=== PATIENT | female | born 1995 | race African-American/Black ===

== ENCOUNTER 2016-09-12 14:10 | Emergency (ER) | payer OTHER ==
--- NOTE | 2016-09-12 15:34 | EDDOCDS ---
Nurse's Notes [facility] Name: Velma Hernandez Age: 21 yrs Sex: Female : 1995 Arrival Date: 09/12/2016 Time: 14:10 Bed TR7 Private MD: BÁRBARA Lynn Diagnosis: Acute upper respiratory infections of multiple and unspecified sites;Cough Presentation: 09/12 14:15 Presenting complaint: Patient states: Productive cough, nasal congestion, sore throat, dwg symptoms for one week worsening progressively. Adult Sepsis Screening: The patient does not have new or worsening altered mentation. Patient's respiratory rate is less than 22. Systolic blood pressure is greater than 100. Patient has a qSOFA score of 0- Negative Sepsis Screen. Suicide/Homicide risk assessment- the patient denies having any suicidal and/or homicidal ideations and does not present with any other emotional, behavioral or mental health complaints. Status: The patient is a dependent. Transition of care: patient was not received from another setting of care. 14:15 Acuity: ALE Level 5 dwg 14:15 Method Of Arrival: Walkin/Carried/Asstd dwg Triage Assessment: 14:18 General: Appears in no apparent distress. Pain: Pain currently is 7 out of 10 on a pain dwg scale. Pt Declines HIV testing. 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 Robitussin PE 30-100 mg/5 mL Oral syrp 10 mL as needed (Last dose: 09/11/2016 21:00) - PMHx: none; - PSHx: Tonsillectomy; Adenoidectomy; - Social history: Smoking status: Patient states was never smoker of tobacco. No barriers to communication noted, The patient speaks fluent Vietnamese. - Family history: Not pertinent. - : The pt / caregiver states he / she is not on anticoagulants. Home medication list is obtained from the patient. - Exposure Risk Screening:: None identified. Screenin:31 Screening information is obtained from the patient. Fall risk: No risks identified. jmb Assistance ADL's: requires no assistance with activities of daily living. Abuse/DV Screen: The patient / caregiver reports he/she is: not in a situation that causes fear, pain or injury. Nutritional screening: No deficits noted. Advance Directives: Currently, there is no health care proxy. There is no active DNR order. There is no living will. There is no Power of Community Outreach Specialist. home support is adequate. Assessment: 15:31 General: Patient instructed on discharge instructions. Patient asked if there were any jmb questions regarding discharge, patient stated no. Patient signed discharge instructions. Patient discharged in stable condition.. Vital Signs: 14:11 BP 137 / 87; Pulse 103; Resp 18 S; Temp 98.7(O); Pulse Ox 100% on R/A; Weight 68.04 kg dd6 (R); Height 5 ft. 5 in. (165.10 cm) (R); 15:31 BP 130 / 80; Pulse 98; Resp 22; Temp 98.4(O); Pulse Ox 100% on R/A; Pain 0/10; jmb 14:11 Body Mass Index 24.96 (68.04 kg, 165.10 cm) dd6 Vitals: 14:11 Log In Time: September 12, 2016 at 14:09. dd6 ED Course: 14:11 Patient visited by Jose Brooks PCA. dd6 14:[address] [facility] is Private Physician. dd6 14:11 Patient moved to Waiting dd6 14:12 Patient moved to Pre RCE dd6 14:17 Triage Initiated dwg 14:57 Patient moved to Triage 1 ct3 14:58 Doyle Granados [facility]. cc10 14:58 Oriana Barnard MD is Attending Physician. cc10 15:03 Patient visited by Doyle Granados PA-C. cc10 15:03 Patient visited by Doyle Granados PA-C. cc10 15:[address] [facility] is Referral Physician. cc10 15:31 Patient moved to TR7 ct3 15:31 The patient / caregiver is instructed regarding the plan of care and ED course. jmb 15:31 No IV's were initiated during this patient's visit. No procedures done that require jmb assistance. Order Results: There are currently no results for this order. Outcome: 15:21 Discharge ordered by Provider. cc10 15:31 Discharge Assessment: Patient awake, alert and oriented x 3. No cognitive and/or jmb functional deficits noted. Patient verbalized understanding of disposition instructions. Patient awake and alert. obeys commands, Oriented to person, place and time. Patient verbalized understanding of disposition instructions. Patient has no functional deficits. patient administered narcotics - no. The following High Risk Discharge criteria are identified: None. Discharged to home ambulatory. Condition: stable Condition: improved. Discharge instructions given to patient, Instructed on discharge instructions, follow up and referral plans. medication usage, Demonstrated understanding of instructions, medications, Pt was receptive of discharge instructions/ teaching. Prescriptions given X 3. No special radiology studies were completed. Property sent home with patient. 15:33 Patient left the ED. matias Signatures: Romain Ren, RN RN Jose Painting, [employer]ACE [employer] MISSILE OPERATIONS SPACELIFT SPACE [employer] MISSILE OPERATIONS SPACELIFT dd6 Susan Muñoz, [employer]PER[employer] SPACELIFT SPACE [employer]ISSI[employer]PERATIONS SPACELIFT ct3 Timothy Hernandez RN RN jmb Coniski, Colin, PA-C PA-C cc10 NICOL
--- NOTE | 2016-09-12 15:34 | EDDOCDS ---
Physician Documentation [facility] Name: Velma Hernandez Age: 21 yrs Sex: Female : 1995 Arrival Date: 09/12/2016 Time: 14:10 Bed TR7 Private MD: BÁRBARA Lynn Disposition: 09/12/16 15:21 Discharged to Home/Self Care. Impression: Acute upper respiratory infections of multiple and unspecified sites, Cough. - Condition is Stable. - Discharge Instructions: Upper Respiratory Infection, Adult, Cough, Adult. - Prescriptions for Augmentin 875- 125 mg Oral Tablet - take 1 tablet by ORAL route every 12 hours for 10 days; 20 tablet. Prednisone 20 mg Oral Tablet - take 1 tablet by ORAL route once daily for 5 days; 5 tablet. benzonatate 200 mg Oral Capsule - take 1 capsule by ORAL route 3 times per day As needed; 30 capsule. - Medication Reconciliation, Work Release Form - 3 day form. - Follow up: BÁRBARA Lynn; When: Call to arrange an appointment; Reason: Wound/Symptom Recheck, Recheck today's complaints, Worsening of conditions, Continuance of care. - Problem is an ongoing problem. - Symptoms are unchanged. Historical: - Allergies: no known allergies; - Home Meds: 1. Robitussin PE 30-100 mg/5 mL Oral syrp 10 mL as needed (Last dose: 09/11/2016 21:00) - PMHx: none; - PSHx: Tonsillectomy; Adenoidectomy; - Social history: Smoking status: Patient states was never smoker of tobacco. No barriers to communication noted, The patient speaks fluent Kosovan. - Family history: Not pertinent. - : The pt / caregiver states he / she is not on anticoagulants. Home medication list is obtained from the patient. - Exposure Risk Screening:: None identified. 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 5 in. (165.10 cm) (R); 15:31 BP 130 / 80; Pulse 98; Resp 22; Temp 98.4(O); Pulse Ox 100% on R/A; Pain 0/10; jmb 14:11 Body Mass Index 24.96 (68.04 kg, 165.10 cm) dd6 MDM: 15:27 Financial registration complete. lg Signatures: Romain Ren, RN RN Anisa Coppola, Reg Reg lg Timothy Hernandez,Doyle Fuller RN, PACarolC PACarolC cc10 MTDD
--- NOTE | 2016-09-14 16:34 | EDDOCDS ---
Physician Documentation [facility] Name: Velma Orr Age: 21 yrs Sex: Female : 1995 Arrival Date: 09/12/2016 Time: 14:10 Bed TR7 Private MD: BÁRBARA Lynn Disposition: 09/12/16 15:21 Discharged to Home/Self Care. Impression: Acute upper respiratory infections of multiple and unspecified sites, Cough. - Condition is Stable. - Discharge Instructions: Upper Respiratory Infection, Adult, Cough, Adult. - Prescriptions for Augmentin 875- 125 mg Oral Tablet - take 1 tablet by ORAL route every 12 hours for 10 days; 20 tablet. Prednisone 20 mg Oral Tablet - take 1 tablet by ORAL route once daily for 5 days; 5 tablet. benzonatate 200 mg Oral Capsule - take 1 capsule by ORAL route 3 times per day As needed; 30 capsule. - Medication Reconciliation, Work Release Form - 3 day form. - Follow up: BÁRBARA Lynn; When: Call to arrange an appointment; Reason: Wound/Symptom Recheck, Recheck today's complaints, Worsening of conditions, Continuance of care. - Problem is an ongoing problem. - Symptoms are unchanged. Historical: - Allergies: no known allergies; - Home Meds: 1. Robitussin PE 30-100 mg/5 mL Oral syrp 10 mL as needed (Last dose: 09/11/2016 21:00) - PMHx: none; - PSHx: Tonsillectomy; Adenoidectomy; - Social history: Smoking status: Patient states was never smoker of tobacco. No barriers to communication noted, The patient speaks fluent Greenlandic. - Family history: Not pertinent. - : The pt / caregiver states he / she is not on anticoagulants. Home medication list is obtained from the patient. - Exposure Risk Screening:: None identified. 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 5 in. (165.10 cm) (R); 15:31 BP 130 / 80; Pulse 98; Resp 22; Temp 98.4(O); Pulse Ox 100% on R/A; Pain 0/10; jmb 14:11 Body Mass Index 24.96 (68.04 kg, 165.10 cm) dd6 MDM: 15:27 Financial registration complete. lg 15:45 [facility] Payment Agreement was scanned into [employer] and attached to record. lg 17:26 T-Sheet-- Draft Copy was scanned into [employer] and attached to record. klr Signatures: Romain Ren, RN RN Anisa Coppola, Reg Reg lg Timothy Hernandez,RN RN Doyle Dorsey, PA-C PA-C cc10 Janet Beebe klr The chart was reviewed and I authenticate all verbal orders and agree with the evaluation and treatment provided.Attachments: 15:45 [facility] Payment Agreement lg 17:26 T-Sheet-- Draft Copy klr Chart Complete MTDD
--- NOTE | 2016-09-14 16:34 | EDDOCDS ---
Nurse's Notes [facility] Name: Velma Orr Age: 21 yrs Sex: Female : 1995 Arrival Date: 09/12/2016 Time: 14:10 Bed TR7 Private MD: BÁRBARA Lynn Diagnosis: Acute upper respiratory infections of multiple and unspecified sites;Cough Presentation: 09/12 14:15 Presenting complaint: Patient states: Productive cough, nasal congestion, sore throat, dwg symptoms for one week worsening progressively. Adult Sepsis Screening: The patient does not have new or worsening altered mentation. Patient's respiratory rate is less than 22. Systolic blood pressure is greater than 100. Patient has a qSOFA score of 0- Negative Sepsis Screen. Suicide/Homicide risk assessment- the patient denies having any suicidal and/or homicidal ideations and does not present with any other emotional, behavioral or mental health complaints. Status: The patient is a dependent. Transition of care: patient was not received from another setting of care. 14:15 Acuity: LAE Level 5 dwg 14:15 Method Of Arrival: Walkin/Carried/Asstd dwg Triage Assessment: 14:18 General: Appears in no apparent distress. Pain: Pain currently is 7 out of 10 on a pain dwg scale. Pt Declines HIV testing. 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 Robitussin PE 30-100 mg/5 mL Oral syrp 10 mL as needed (Last dose: 09/11/2016 21:00) - PMHx: none; - PSHx: Tonsillectomy; Adenoidectomy; - Social history: Smoking status: Patient states was never smoker of tobacco. No barriers to communication noted, The patient speaks fluent Yi. - Family history: Not pertinent. - : The pt / caregiver states he / she is not on anticoagulants. Home medication list is obtained from the patient. - Exposure Risk Screening:: None identified. Screenin:31 Screening information is obtained from the patient. Fall risk: No risks identified. jmb Assistance ADL's: requires no assistance with activities of daily living. Abuse/DV Screen: The patient / caregiver reports he/she is: not in a situation that causes fear, pain or injury. Nutritional screening: No deficits noted. Advance Directives: Currently, there is no health care proxy. There is no active DNR order. There is no living will. There is no Power of Psychologist Social. home support is adequate. Assessment: 15:31 General: Patient instructed on discharge instructions. Patient asked if there were any jmb questions regarding discharge, patient stated no. Patient signed discharge instructions. Patient discharged in stable condition.. Vital Signs: 14:11 BP 137 / 87; Pulse 103; Resp 18 S; Temp 98.7(O); Pulse Ox 100% on R/A; Weight 68.04 kg dd6 (R); Height 5 ft. 5 in. (165.10 cm) (R); 15:31 BP 130 / 80; Pulse 98; Resp 22; Temp 98.4(O); Pulse Ox 100% on R/A; Pain 0/10; jmb 14:11 Body Mass Index 24.96 (68.04 kg, 165.10 cm) dd6 Vitals: 14:11 Log In Time: September 12, 2016 at 14:09. dd6 ED Course: 14:11 Patient visited by Jose Brooks PCA. dd6 14:11 Shane [facility] is Private Physician. dd6 14:11 Patient moved to Waiting dd6 14:12 Patient moved to Pre RCE dd6 14:17 Triage Initiated dwg 14:57 Patient moved to Triage 1 ct3 14:58 [facility] cc[facility] 14:58 Oriana Barnard MD is Attending Physician. cc10 15:03 Patient visited by Doyle Granados PA-C. cc10 15:03 Patient visited by Doyle Granados PA-C. cc10 15:21 Shane [facility] is Referral Physician. cc10 15:31 Patient moved to TR7 ct3 15:31 The patient / caregiver is instructed regarding the plan of care and ED course. jmb 15:31 No IV's were initiated during this patient's visit. No procedures done that require jmb assistance. 15:44 Patient name changed from Velma\S\\S\Chan-Adela\S\ to Velma\S\Cathy\S\Ruizmonsanto. EDMS 15:45 [facility] Payment Agreement was scanned into [employer] and attached to record. lg 17:26 T-Sheet-- Draft Copy was scanned into [employer] and attached to record. klr Order Results: There are currently no results for this order. Outcome: 15:21 Discharge ordered by Provider. cc10 15:31 Discharge Assessment: Patient awake, alert and oriented x 3. No cognitive and/or jmb functional deficits noted. Patient verbalized understanding of disposition instructions. Patient awake and alert. obeys commands, Oriented to person, place and time. Patient verbalized understanding of disposition instructions. Patient has no functional deficits. patient administered narcotics - no. The following High Risk Discharge criteria are identified: None. Discharged to home ambulatory. Condition: stable Condition: improved. Discharge instructions given to patient, Instructed on discharge instructions, follow up and referral plans. medication usage, Demonstrated understanding of instructions, medications, Pt was receptive of discharge instructions/ teaching. Prescriptions given X 3. No special radiology studies were completed. Property sent home with patient. 15:33 Patient left the ED. matias Signatures: Dispatcher MedGILUPI EDMS Romain Ren, RN Anisa Warren, Reg Reg lg Cecilia Jose, SIEBEL CONSULTANT SIEBEL CONSULTANT dd6 MuñozSusan, SIEBEL CONSULTANT SIEBEL CONSULTANT ct3 Timothy HernandezRN RN Doyle Dorsey, APARNA PAJerson cc10 Janet Beebe Chart Complete MTDYolis
--- NOTE | 2016-09-14 16:34 | EDDOCDS ---
Physician Documentation [facility] Name: Velma Orr Age: 21 yrs Sex: Female : 1995 Arrival Date: 09/12/2016 Time: 14:10 Bed TR7 Private MD: BÁRBARA Lynn Disposition: 09/12/16 15:21 Discharged to Home/Self Care. Impression: Acute upper respiratory infections of multiple and unspecified sites, Cough. - Condition is Stable. - Discharge Instructions: Upper Respiratory Infection, Adult, Cough, Adult. - Prescriptions for Augmentin 875- 125 mg Oral Tablet - take 1 tablet by ORAL route every 12 hours for 10 days; 20 tablet. Prednisone 20 mg Oral Tablet - take 1 tablet by ORAL route once daily for 5 days; 5 tablet. benzonatate 200 mg Oral Capsule - take 1 capsule by ORAL route 3 times per day As needed; 30 capsule. - Medication Reconciliation, Work Release Form - 3 day form. - Follow up: BÁRBARA Lynn; When: Call to arrange an appointment; Reason: Wound/Symptom Recheck, Recheck today's complaints, Worsening of conditions, Continuance of care. - Problem is an ongoing problem. - Symptoms are unchanged. Historical: - Allergies: no known allergies; - Home Meds: 1. Robitussin PE 30-100 mg/5 mL Oral syrp 10 mL as needed (Last dose: 09/11/2016 21:00) - PMHx: none; - PSHx: Tonsillectomy; Adenoidectomy; - Social history: Smoking status: Patient states was never smoker of tobacco. No barriers to communication noted, The patient speaks fluent Serbian. - Family history: Not pertinent. - : The pt / caregiver states he / she is not on anticoagulants. Home medication list is obtained from the patient. - Exposure Risk Screening:: None identified. 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 5 in. (165.10 cm) (R); 15:31 BP 130 / 80; Pulse 98; Resp 22; Temp 98.4(O); Pulse Ox 100% on R/A; Pain 0/10; jmb 14:11 Body Mass Index 24.96 (68.04 kg, 165.10 cm) dd6 MDM: 15:27 Financial registration complete. lg 15:45 [facility] Payment Agreement was scanned into [employer] and attached to record. lg 17:26 T-Sheet-- Draft Copy was scanned into [employer] and attached to record. klr Signatures: Romain Ren, RN RN Anisa Coppola, Reg Reg lg Timothy Hernandez,RN RN Doyle Dorsey, PA-C PA-C cc10 Janet Beebe klr The chart was reviewed and I authenticate all verbal orders and agree with the evaluation and treatment provided.Attachments: 15:45 [facility] Payment Agreement lg 17:26 T-Sheet-- Draft Copy klr Chart Complete MTDD
== END 2016-09-12 15:33 | disposition home or self-care (01) ==
LOC: M ED 14:10
DX: J06.9 Acute upper respiratory infection, unspecified (principal); R05 Cough; Z90.89 Acquired absence of other organs

== ENCOUNTER 2018-09-03 01:17 | Emergency (ER) | payer OTHER ==
[~2018-09-03] VITALS: Ht 165.1 cm; Wt 72.7 kg
[2018-09-03 01:17] VITALS: BP 124/72
[2018-09-03 02:06] LABS: HEMATOCRIT 36.6 % (36.0-47.0); HEMOGLOBIN 12.6 g/dl (12.0-15.5); MEAN CORPUSCULAR HGB CONC 34.4 g/dl (32.0-36.5); MEAN CORPUSCULAR VOLUME 84.1 fl (80.0-96.0); PLATELET COUNT, AUTOMATED 323 10^3/uL (150-450); RED BLOOD COUNT 4.35 10^6/uL (4.00-5.40); WHITE BLOOD COUNT 11.3 10^3/uL (4.0-10.0)
[2018-09-03 02:22] LABS: ALBUMIN 3.5 GM/DL (3.2-5.2); ALT/SGPT 17 U/L (12-78); BILIRUBIN,DIRECT < 0.1 MG/DL (0.0-0.2); BILIRUBIN,TOTAL 0.3 MG/DL (0.2-1.0); BLOOD UREA NITROGEN 8 MG/DL (7-18); CALCIUM LEVEL 8.8 MG/DL (8.5-10.1); CARBON DIOXIDE LEVEL 24 MEQ/L (21-32); CHLORIDE LEVEL 104 MEQ/L (98-107); CREATININE FOR GFR 0.82 MG/DL (0.55-1.30); GLOMERULAR FILTRATION RATE > 60.0 (>60); GLUCOSE, FASTING 94 MG/DL (70-100); LIPASE 106 U/L (73-393); POTASSIUM SERUM 4.1 MEQ/L (3.5-5.1); SODIUM LEVEL 138 MEQ/L (136-145); TOTAL PROTEIN 7.1 GM/DL (6.4-8.2)
[2018-09-03 02:29] LABS: ATYPICAL LYMPH 4 % (0-5); EOSINOPHILS 2 % (0-5); LYMPHOCYTES 44 % (16-52); MONOCYTES 8 % (0-8); NEUTROPHILS 42 % (35-75); PLATELET ESTIMATE NORMAL (NORMAL)
[2018-09-03 02:34] LABS: HCG, SERUM QUALITATIVE POSITIVE (NEGATIVE)
[2018-09-03] MEDS ORDERED: NS 1,000 ML IV ONE (02:45)
[2018-09-03] MEDS ORDERED: KETOROLAC 30 MG/ML VIAL (J1885) IV ONE (02:45)
[2018-09-03] MEDS ORDERED: ACETAMINOPHEN 325 MG TAB PO ONE (03:15)
[2018-09-03 03:58] LABS: HCG, SERUM QUANTITATIVE 1183 MIU/ML
--- NOTE | 2018-09-03 04:19 | REPVR ---
EXAM: US Duplex Artery or Vein of the Abdominal and/or Reproductive Organs, Limited Ovaries EXAM DATE/TIME: 09/03/2018 2:48 AM CLINICAL HISTORY: 23 years old, female; Pain; Pelvic pain; Additional info: Rlq pain, sudden onset TECHNIQUE: Real-time duplex ultrasound scan of the arterial or venous flow with sidhu scale, color Doppler flow and spectral waveform analysis. Limited duplex exam focused on the ovaries. Duplex exam was performed to evaluate for ovarian torsion or mass. COMPARISON: No relevant prior studies available. FINDINGS: Right adnexa: Normal blood flow seen within the right ovary on color Doppler imaging. Normal arterial blood flow with static images on pulsed Doppler, with a peak systolic velocity of 7 cm/s. Left adnexa: Normal arterial and venous blood flow are seen in the left ovary on color and pulsed Doppler. The peak systolic velocity is 5 cm/s. IMPRESSION: Blood flow detected within both ovaries. No evidence of ovarian torsion. EXAM: US Pelvis, Transvaginal EXAM DATE/TIME: 09/03/2018 2:48 AM CLINICAL HISTORY: 23 years old, female; Pain; Pelvic pain; Additional info: Rlq pain, sudden onset TECHNIQUE: Real-time transvaginal pelvic ultrasound with image documentation. Transvaginal imaging was used for better evaluation of the endometrium and adnexa. COMPARISON: No relevant prior studies available. FINDINGS: Uterus/cervix: The uterus is retroverted and measures 3.8 7.2 x 4.6 cm. No masses are seen in the uterus. The endometrial stripe measures 1.4 cm. Right adnexa: The right ovary appears normal and measures 4.9 x 2.3 x 1.7 cm. A complex cyst is seen within the right ovary measuring 2.0 x 1.7 x 2.3 cm. Left adnexa: The left ovary measures 4.0 x 1.9 x 3.5 cm. There is a hypoechoic area with an irregular, thick wall within the left ovary which is probably a partially collapsed corpus luteum, measuring 1.4 x 1.5 x 1.2 cm. Free fluid: No significant fluid is seen in the cul-de-sac. Bladder: Empty bladder. Bladder cannot be evaluated with this probe. IMPRESSION: 1. Unremarkable appearance of uterus. 2. Small complex cyst within the right ovary measuring up to 2 cm. Probable corpus luteum in the left ovary. No evidence of ovarian torsion. Electronically signed by: Esther Bales On 09/03/2018 04:19:05 AM
== END 2018-09-03 04:21 | disposition home or self-care (01) ==
LOC: M ED 01:17
DX: N83.201 Unspecified ovarian cyst, right side (principal); Z33.1 Pregnant state, incidental

== ENCOUNTER 2018-09-10 06:17 | Observation (INO) | payer OTHER ==
[~2018-09-10] VITALS: Ht 165.1 cm; Wt 76.5 kg
[2018-09-10 07:12] LABS: BASO # 0.1 10^3/uL (0.0-0.2); BASO % 0.5 % (0.0-1.0); EOS # 0.4 10^3/uL (0.0-0.50); EOS % 3.7 % (0.0-3.0); HEMATOCRIT 38.7 % (36.0-47.0); HEMOGLOBIN 13.3 g/dl (12.0-15.5); LYMPH # 3.5 10^3/uL (1.5-6.5); LYMPH % 34.5 % (24.0-44.0); MEAN CORPUSCULAR HEMOGLOBIN 29.6 pg (27.0-33.0); MEAN CORPUSCULAR HGB CONC 34.4 g/dl (32.0-36.5); MONO % 10.1 % (0.0-5.0); NEUTROPHILS # 5.1 10^3/uL (1.8-7.7); NEUTROPHILS % 50.9 % (36.0-66.0); PLATELET COUNT, AUTOMATED 319 10^3/uL (150-450)
--- NOTE | 2018-09-10 08:47 | REPVR ---
EXAM: US Duplex Artery or Vein of the Abdominal and/or Reproductive Organs, Limited EXAM DATE/TIME: 09/10/2018 7:47 AM CLINICAL HISTORY: 23 years old, female; Signs and symptoms; Lmp or gestational age (in weeks): Unknown; Other: Vaginal bleeding; TECHNIQUE: Real-time duplex ultrasound scan of the arterial or venous flow of the abdomen and/or reproductive organs, with color Doppler flow and spectral waveform analysis. COMPARISON: US PELVIC NON-OB COMPLETE 09/03/2018 2:43 AM FINDINGS: Right ovary: Normal waveform. Left ovary: Normal waveform. IMPRESSION: No evidence of ovarian torsion bilaterally. EXAM: US First Trimester, Transabdominal and US , Transvaginal EXAM DATE/TIME: 09/10/2018 7:47 AM CLINICAL HISTORY: 23 years old, female; Signs and symptoms; Lmp or gestational age (in weeks): Unknown; Other: Vaginal bleeding; TECHNIQUE: Real-time transabdominal obstetrical ultrasound of the maternal pelvis and a first trimester , less than 14 weeks 0 days, with image documentation. Transvaginal imaging was used for better evaluation of the fetus and adnexa. COMPARISON: US PELVIC NON-OB COMPLETE 09/03/2018 2:43 AM FINDINGS: GESTATION: Gestation: No intra-or extrauterine gestation. MATERNAL: Uterus: Uterus measures 7.4 x 3.6 x 5 cm. Endometrial stripe is 7 mm. Cervix: Unremarkable. Right adnexa: Right ovary measures 2.6 x 3 x 2 cm. Prominent vascular heterogeneous soft tissue in the right adnexa separate from right ovary measures approximately 5.5 x 2.4 x 3 cm. Moderate amount of adjacent complex free fluid. Left adnexa: Left ovary measures 3.2 x 2.2 x 1.8 cm. IMPRESSION: No intra-or extrauterine gestation. Prominent vascular heterogeneous soft tissue in the right adnexa separate from right ovary measures approximately 5.5 x 2.4 x 3 cm. Moderate amount of adjacent complex free fluid. Ruptured right adnexal ectopic is a consideration. Electronically signed by: Jamarcus Ball On 09/10/2018 08:46:57 AM
[2018-09-10] MEDS ORDERED: ACETAMINOPHEN TAB 650MG DOSE (2X325MG) PO PRN (10:30)
--- NOTE | 2018-09-10 10:44 | IPNPDOC ---
Text Note Date of Service The patient was seen on 09/10/18. NOTE ER Consult, observation Subjective: Velma is a 23yo at 8w0d by lmp of Jul 16 who presents to the ER today for vaginal bleeding. She was seen previously in the ER on Aug for abdominal pain/cramping, at which time she was diagnosed with with hcg value at that time of 1,183. TVUS showed nothing in the uterus yet and small 2cm right ovarian complex cyst. She was discharged home and re-presents today with vaginal bleeding like a period. She notes she has had spotting for a few days, but is now bleeding like a typical period. She has absolutely no abdominal pain. hcg today is 271 which is most consistent, especially with her bleeding, with SAB. However, repeat TVUS today was performed which shows concern for a mass that is separate from the right ovary measuring 5.5x2.4x3cm with associated vascularity and adjacent complex free fluid, which are findings concerning for ectopic . Given normal vitals, benign abdomen, no change in H/H and preci pitously falling hcg in the setting of vaginal bleeding, ectopic does not seem likely. This is a conundrum. Patient denies n/v/f/c/CP/SOB. 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 Patient's is [employer] Family: MGM and 2 maternal aunts had breast cancer in their 50's, no ovarian/ uterine/colon cancers Vitals wnl, afebrile General: WDWN, NAD, resting comfortably in bed Abdomen: soft, NTTP in all quadrants, no rebound/guarding Extremities: no pain with palpation of calves Labs: 09/10 hcg 271 H/H 13.3/38.7 Rh positive 09/03 hcg 1,183 H/H 12.6/36.6 Radiology: TVUS Sep 10, 2018 FINDINGS: GESTATION: Gestation: No intra-or extrauterine gestation. MATERNAL: Uterus: Uterus measures 7.4 x 3.6 x 5 cm. Endometrial stripe is 7 mm. Cervix: Unremarkable. Right adnexa: Right ovary measures 2.6 x 3 x 2 cm. Prominent vascular heterogeneous soft tissue in the right adnexa separate from right ovary measures approximately 5.5 x 2.4 x 3 cm. Moderate amount of adjacent complex free fluid. Left adnexa: Left ovary measures 3.2 x 2.2 x 1.8 cm. IMPRESSION: No intra-or extrauterine gestation. Prominent vascular heterogeneous soft tissue in the right adnexa separate from right ovary measures approximately 5.5 x 2.4 x 3 cm. Moderate amount of adjacent complex free fluid. Ruptured right adnexal ectopic is a consideration. TVUS Sep 03, 2018 FINDINGS: Uterus/cervix: The uterus is retroverted and measures 3.8 7.2 x 4.6 cm. No masses are seen in the uterus. The endometrial stripe measures 1.4 cm. Right adnexa: The right ovary appears normal and measures 4.9 x 2.3 x 1.7 cm. A complex cyst is seen within the right ovary measuring 2.0 x 1.7 x 2.3 cm. Left adnexa: The left ovary measures 4.0 x 1.9 x 3.5 cm. There is a hypoechoic area with an irregular, thick wall within the left ovary which is probably a partially collapsed corpus luteum, measuring 1.4 x 1.5 x 1.2 cm. Free fluid: No significant fluid is seen in the cul-de-sac. Bladder: Empty bladder. Bladder cannot be evaluated with this probe. IMPRESSION: 1. Unremarkable appearance of uterus. 2. Small complex cyst within the right ovary measuring up to 2 cm. Probable corpus luteum in the left ovary. No evidence of ovarian torsion. Assessment: Velma is a 23yo at 8w0d by lmp of Jul 16 who presents with likely SAB in the setting of precipitously falling hcg, vaginal bleeding, endometrial lining decreasing from 1.4cm to 0.7mm, absence of abdominal pain, normal vital signs and benign exam. However, the ultrasound findings are concerning for right ectopic with the wording "prominent vascular heterogeneous soft tissue in the right adnexa separate from the right ovary measures 5.5x2.4x3cm- moderate amount of adjacent complex free fluid"- this finding cannot be ignored in the setting of early , especially when no intrauterine was previously seen. Plan: -Overnight observation to ensure clinical stability -In the morning, will repeat hcg, CBC and pelvic ultrasound -Regular diet for now, unless patient begins to have pain -Vitals q4hr -saline lock IV -discussed with patient that if things change, we may need to proceed with laparoscopy. I described the procedure. -All questions answered, patient is amenable to the plan Dr. Arpita Blue MD VS,[place], I+O VS, Brent[place], I+O Laboratory Tests 09/10/18 07:03 Red Blood Count 4.50, Mean Corpuscular Volume 86.0, Mean Corpuscular Hemoglobin 29.6, Mean Corpuscular Hemoglobin Concent 34.4, Red Cell Distribution Width 13.2, Neutrophils (%) (Auto) 50.9, Lymphocytes (%) (Auto) 34.5, Monocytes (%) (Auto) 10.1 H, Eosinophils (%) (Auto) 3.7 H, Basophils (%) (Auto) 0.5, Neutrop hils # (Auto) 5.1, Lymphocytes # (Auto) 3.5, Monocytes # (Auto) 1.0 H, Eosinophils # (Auto) 0.4, Basophils # (Auto) 0.1 Vital Signs Date Time Temp Pulse Resp B/P (MAP) Pulse Ox O2 Delivery O2 Flow Rate FiO2 09/10/18 09:00 73 18 118/76 (90) 99 Room Air 09/10/18 06:17 96.8 Arpita Blue MD Sep 10, 2018 10:17
[2018-09-10 11:25] VITALS: BP 116/74
[2018-09-10 16:00] VITALS: BP 124/71
[2018-09-10 20:00] VITALS: BP 124/72
[2018-09-11] VITALS: BP 124/74
[2018-09-11 04:00] VITALS: BP 101/53
[2018-09-11 06:00] VITALS: BP 101/53
[2018-09-11 06:59] LABS: BASO % 0.5 % (0.0-1.0); EOS # 0.4 10^3/uL (0.0-0.50); HEMATOCRIT 37.1 % (36.0-47.0); HEMOGLOBIN 12.7 g/dl (12.0-15.5); LYMPH # 3.5 10^3/uL (1.5-6.5); LYMPH % 42.9 % (24.0-44.0); MEAN CORPUSCULAR HEMOGLOBIN 29.4 pg (27.0-33.0); MEAN CORPUSCULAR HGB CONC 34.2 g/dl (32.0-36.5); MEAN CORPUSCULAR VOLUME 85.9 fl (80.0-96.0); MONO # 0.9 10^3/uL (0.0-0.8); MONO % 10.3 % (0.0-5.0); NEUTROPHILS # 3.4 10^3/uL (1.8-7.7); NEUTROPHILS % 41.1 % (36.0-66.0); PLATELET COUNT, AUTOMATED 302 10^3/uL (150-450); RED BLOOD COUNT 4.32 10^6/uL (4.00-5.40); WHITE BLOOD COUNT 8.3 10^3/uL (4.0-10.0)
[2018-09-11 08:00] VITALS: BP 108/60
--- NOTE | 2018-09-11 09:07 | REP ---
Clinical: Possible ectopic. Comparison: 09/10/2018 . Technique: Transabdominal pelvic ultrasound followed by transvaginal examination for better evaluation of the endometrium and adnexa with color Doppler evaluation of the ovaries. Findings: Bladder is unremarkable and measures 8.1 x 7.5 x 3.8 cm . Normal anteverted uterus measures 6.8 x 3.3 x 4.3 cm . The endometrial complex measures 3.7 mm thickness. No discrete uterine or endometrial abnormalities are appreciated. No intrauterine identified. Bilateral ovaries are normal in appearance and vascularity without evidence for torsion. Right ovary measures 3.3 x 1.9 x 2.6 cm ; R I = 0.53 . Left ovary measures 3.3 x 1.9 x 2.8 cm ; R I = 0.60 . Complex area in the right adnexa measuring 5.3 x 1.7 x 3.8 cm is again identified and appears essentially stable. Adjacent complex free fluid in the right adnexa is minimally decreased. Impression: 1. No intrauterine identified. 2. Complex area in the right adnexa remains stable with decreased free fluid. Electronically Signed by Reji Vyas MD 09/11/2018 08:58 A
[2018-09-11] MEDS ORDERED: MAPA500T2 PO (09:42)
--- NOTE | 2018-09-11 10:11 | IPNPDOC ---
Text Note Date of Service The patient was seen on 09/11/18. NOTE Subjective: Velma is a 23yo at 8w1d by lmp of Jul 16 who presented to the ER yesterday for vaginal bleeding, and was kept for observation overnight given ultrasound findings that were concerning for ectopic . She was seen previously in the ER on Aug for abdominal pain/cramping, at which time she was diagnosed with with hcg value at that time of 1,183. TVUS showed nothing in the uterus yet and small 2cm right ovarian complex cyst. She was discharged home and re-presents today with vaginal bleeding like a period. She notes she has had spotting for a few days, but is now bleeding like a typical period. She has absolutely no abdominal pain. hcg yesterday was 271 which is most consistent, especially with her bleeding, with SAB. However, repeat TVUS yesterday was performed which showed concern for a mass that is separate from the right ovary measuring 5.5x2.4x3cm with associated vascularity and adjacent complex free fluid, which are findings concerning for ectopic . Given normal vitals, benign abdomen, no change in H/H and precipitously falling hcg in the setting of vaginal bleeding, ectopic did not seem likely, however, the ul trasound findings could not be ignored. Overnight Velma did well. She notes absolutely no physical changes. Still has light period-like bleeding. No abdominal pain whatsoever. Patient denies n/v/f /c/CP/SOB. Vitals wnl, afebrile General: WDWN, NAD, sitting up eating breakfast, comfortable in bed Abdomen: soft, NTTP in all quadrants, no rebound/guarding Labs: 09/11 hcg 178 H/H 12.7/37.1 09/10 hcg 271 H/H 13.3/38.7 Rh positive 09/03 hcg 1,183 H/H 12.6/36.6 Radiology: TVUS Sep 11, 2018 Impression: 1. No intrauterine identified. 2. Complex area in the right adnexa remains stable with decreased free fluid. TVUS Sep 10, 2018 FINDINGS: GESTATION: Gestation: No intra-or extrauterine gestation. MATERNAL: Uterus: Uterus measures 7.4 x 3.6 x 5 cm. Endometrial stripe is 7 mm. Cervix: Unremarkable. Right adnexa: Right ovary measures 2.6 x 3 x 2 cm. Prominent vascular heterogeneous soft tissue in the right adnexa separate from right ovary measures approximately 5.5 x 2.4 x 3 cm. Moderate amount of adjacent complex free fluid. Left adnexa: Left ovary measures 3.2 x 2.2 x 1.8 cm. IMPRESSION: No intra-or extrauterine gestation. Prominent vascular heterogeneous soft tissue in the right adnexa separate from right ovary measures approximately 5.5 x 2.4 x 3 cm. Moderate amount of adjacent complex free fluid. Ruptured right adnexal ectopic is a consideration. TVUS Sep 03, 2018 FINDINGS: Uterus/cervix: The uterus is retroverted and measures 3.8 7.2 x 4.6 cm. No masses are seen in the uterus. The endometrial stripe measures 1.4 cm. Right adnexa: The right ovary appears normal and measures 4.9 x 2.3 x 1.7 cm. A complex cyst is seen within the right ovary measuring 2.0 x 1.7 x 2.3 cm. Left adnexa: The left ovary measures 4.0 x 1.9 x 3.5 cm. There is a hypoechoic area with an irregular, thick wall within the left ovary which is probably a partially collapsed corpus luteum, measuring 1.4 x 1.5 x 1.2 cm. Free fluid: No significant fluid is seen in the cul-de-sac. Bladder: Empty bladder. Bladder cannot be evaluated with this probe. IMPRESSION: 1. Unremarkable appearance of uterus. 2. Small complex cyst within the right ovary measuring up to 2 cm. Probable corpus luteum in the left ovary. No evidence of ovarian torsion. Assessment: Velma is a 23yo at 8w0d by lmp of Jul 16 who presented with likely SAB in the setting of precipitously falling hcg, vaginal bleeding, endometrial lining decreasing from 1.4cm to 0.7mm, absence of abdominal pain, normal vital signs and benign exam. However, the ultrasound findings were concerning for right ectopic with the wording "prominent vascular heterogeneous soft tissue in the right adnexa separate from the right ovary measures 5.5x2.4x3cm- moderate amount of adjacent complex free fluid", so she was kept overnight for observation. She has had no change whatsoever in clinical presentation. Hcg continues to fall precipitously, now 178. Repeat TVUS shows decreased associated fluid with the stable mass adjacent to the right ovary. Plan: -discharge to home with follow up in clinic with me next week -work note provided -strict return precautions discussed Dr. Arpita Blue MD VS,[place]rent[place] I+O VS, [place] I+O Laboratory Tests 09/11/18 06:35 Red Blood Count 4.32, Mean Corpuscular Volume 85.9, Mean Corpuscular Hemoglobin 29.4, Mean Corpuscular Hemoglobin Concent 34.2, Red Cell Distribution Width 13.1, Neutrophils (%) (Auto) 41.1, Lymphocytes (%) (Auto) 42.9, Monocytes (%) (Auto) 10.3 H, Eosinophils (%) (Auto) 5.0 H, Basophils (%) (Auto) 0.5, Neutrophils # (Auto) 3.4, Lymphocytes # (Auto) 3.5, Monocytes # (Auto) 0.9 H, E osinophils # (Auto) 0.4, Basophils # (Auto) 0.0 Vital Signs Date Time Temp Pulse Resp B/P (MAP) Pulse Ox O2 Delivery O2 Flow Rate FiO2 09/11/18 08:00 98.6 88 20 108/60 (76) 98 Room Air I&O- Last 24 Hours up to 6 AM 09/11/18 06:00 Intake Total 900 ml Output Total 1500 ml Balance -600 ml Arpita Blue MD Sep 11, 2018 10:11
== END 2018-09-11 10:10 | disposition home or self-care (01) ==
LOC: M ED 06:17 → M ED INP 10:20 → M PED 11:19
PROVIDERS: ADMIT Obstetrics & Gynecology; ATTEND Obstetrics & Gynecology
DX: N93.8 Other specified abnormal uterine and vaginal bleeding (principal); N83.12 Corpus luteum cyst of left ovary; N83.291 Other ovarian cyst, right side

== ENCOUNTER → 2018-10-12 | Outpatient (CLI) | payer OTHER ==
[~2018-10-12] MED LIST: ISOVUE-370 76% 100ML VIAL (Q9967) As Ordered ONE; MAPA500T2 PO
--- NOTE | 2018-10-19 06:25 | REP ---
Clinical: Mediastinal mass. Technique: Axial contrast enhanced images from the thoracic inlet to the upper abdomen with coronal and sagittal re-formations using 100 ml Isovue 370 intravenous contrast material. Comparison: None available. Findings: There is a complex cystic mass with irregular enhancing wall and septations within the anterior mediastinum extending from the level of the thoracic inlet inferiorly resting upon in the superior anterior margin of the heart and measuring roughly 8.8 x 6.7 x 5.0 cm. The mass appears separate from the normal thyroid gland. The mediastinal vasculature including thoracic aorta and pulmonary vasculature appear intact and unrelated / unaffected. Heart appears normal and the lesion is presumed to be a separate from the pericardium. No significant axillary, hilar, or mediastinal adenopathy is appreciated. Bilateral lung schmidt are well-aerated and clear. No consolidation, nodule or mass. No pleural effusion. No pneumothorax. Tracheobronchial tree is patent. Osseous structures are intact and normal. Impression: Large complex cystic/septated anterior mediastinal mass having irregular enhancing wall and scattered mural nodules. Lesion remains essentially stable in size when compared to 07/28/2018. Differential diagnosis includes but is not limited to lymphoma, thymoma, teratoma. Electronically Signed by Reji Vyas MD 10/19/2018 06:18 A
== END ==
LOC: M RAD 07:32
PROVIDERS: ATTEND Family Medicine
DX: J98.59 Other diseases of mediastinum, not elsewhere classified (principal)

== ENCOUNTER → 2018-12-20 | Outpatient (CLI) | payer OTHER ==
[~2018-12-20] MED LIST changes: +ACETAMINOPHEN 325 MG TAB As Ordered ONE; -ISOVUE-370 76% 100ML VIAL (Q9967) As Ordered ONE; +LIDOCAINE 1% MDV 20ML VIAL As Ordered ONE
[2018-12-20 11:41] LABS: INR 1.03; PROTHROMBIN TIME 13.6 SECONDS (12.1-14.4)
[2018-12-20 11:54] LABS: HCG, SERUM QUALITATIVE NEGATIVE (NEGATIVE)
--- NOTE | 2018-12-20 16:13 | REP ---
CHEST, TWO VIEWS: Two views of the chest are performed. There is no pneumothorax. Patient had mediastinal bx today. Mediastinal mass is again noted projecting in the region of the left superior mediastinum. The heart is not enlarged. No infiltrates are seen in either lung. IMPRESSION: No pneumothorax. Status post mediastinal biopsy. Electronically Signed by Romain Leon MD 12/21/2018 03:30 P
--- NOTE | 2018-12-21 14:39 | REP ---
CT-guided mediastinal biopsy The procedure is performed by EMILY Delong, under the personal supervision of Dr. Leon. The patient has a history of a the complex cystic mass with irregular enhancing wall and septations within the anterior meters mediastinum extending from the level of the thoracic inlet inferior resting upon the superior anterior margin of the heart measuring roughly 8.[address] dated 10/12/2018. The risks and benefits of the procedure were explained to the patient and informed consent was obtained both orally and written. Directly prior to the start of the procedure, a formal timeout was done and the exam room. The mediastinal mass was localized using CT guidance. Skin was prepped and draped in the usual sterile fashion. 15 ml of 1% lidocaine was used as a local anesthetic. Using CT guidance and 19/20 gauge coaxial needle biopsy system was inserted and advanced into the mass. Four core biopsy samples were obtained and sent to the lab. CT images obtained directly after the biopsy show no evidence of pneumothorax. After the appropriate amount of monitored convalescence the patient was discharged from the department. Reviewed by EMILY Smith 12/20/2018 03:30 P Electronically Signed by Romain Leon MD 12/21/2018 02:30 P
== END ==
LOC: M RADPRO 10:46
PROVIDERS: ATTEND Thoracic Surgery (Cardiothoracic Vascular Surgery)
DX: Z01.812 Encounter for preprocedural laboratory examination (principal); J98.59 Other diseases of mediastinum, not elsewhere classified; D38.3 Neoplasm of uncertain behavior of mediastinum

== ENCOUNTER 2019-02-19 20:27 | Emergency (ER) | payer OTHER ==
[~2019-02-19] VITALS: Ht 165.1 cm; Wt 72.7 kg
[~2019-02-19 20:27] MED LIST changes: -ACETAMINOPHEN 325 MG TAB As Ordered ONE; -LIDOCAINE 1% MDV 20ML VIAL As Ordered ONE
[2019-02-19] MEDS ORDERED: NS 1,000 ML IV ONE (21:00)
[2019-02-19] MEDS ORDERED: METOCLOPRAMIDE INJ 10MG/2ML VIAL (J2765) IV ONE (21:00)
[2019-02-19] MEDS ORDERED: diphenhydrAMINE INJ 50MG/ML VIAL (J1200) IV ONE (21:00)
[2019-02-19] MEDS ORDERED: KETOROLAC 30 MG/ML VIAL (J1885) IV ONE (21:00)
[2019-02-19 22:59] VITALS: BP 110/53
== END 2019-02-19 23:01 | disposition home or self-care (01) ==
LOC: M ED 20:27
DX: G43.909 Migraine, unspecified, not intractable, without status migrainosus (principal)
CPT/HCPCS: 84702; 96361; 96374; 96375; 99284; J1200; J1885; J2765

== ENCOUNTER 2019-03-02 12:38 | Emergency (ER) | payer OTHER ==
[~2019-03-02] VITALS: Ht 162.6 cm; Wt 70.0 kg
[2019-03-02 15:04] LABS: HEMATOCRIT 40.9 % (36.0-47.0); HEMOGLOBIN 14.2 g/dl (12.0-15.5); MEAN CORPUSCULAR HEMOGLOBIN 29.7 pg (27.0-33.0); MEAN CORPUSCULAR HGB CONC 34.7 g/dl (32.0-36.5); MEAN CORPUSCULAR VOLUME 85.6 fl (80.0-96.0); PLATELET COUNT, AUTOMATED 315 10^3/uL (150-450); RED BLOOD COUNT 4.78 10^6/uL (4.00-5.40); WHITE BLOOD COUNT 7.7 10^3/uL (4.0-10.0)
[2019-03-02] MEDS ORDERED: ACETAMINOPHEN 500 MG TAB PO ONE (15:30)
[2019-03-02] MEDS ORDERED: ONDANSETRON 4 MG ORAL DISINTEGRATING TAB (Q0162 PER 1MG) PO ONE (15:30)
[2019-03-02 15:44] LABS: AMORPHOUS SEDIMENT SMALL (NEGATIVE); APPEARANCE, URINE CLEAR (CLEAR); BACTERIA, URINE AUTO 1+ (NEGATIVE); BILIRUBIN, URINE AUTO NEGATIVE (NEGATIVE); BLOOD, URINE BLOOD 3+ (NEGATIVE); COLOR, URINE YELLOW (YELLOW); GLUCOSE, URINE (UA) AUTO NEGATIVE (NEGATIVE); KETONE, URINE AUTO 2+ mg/dL (NEGATIVE); LEUKOCYTE ESTERASE, URINE AUTO NEGATIVE (NEGATIVE); MUCUS, URINE SMALL (NEGATIVE); NITRITE, URINE AUTO NEGATIVE (NEGATIVE); PROTEIN, URINE AUTO NEGATIVE (NEGATIVE); RBC, URINE AUTO 2 /HPF (0-3); SPECIFIC GRAVITY URINE AUTO 1.015 (1.002-1.035); SQUAMOUS EPITHELIAL CELL UR AU 0 /HPF (0-6); UROBILINOGEN, URINE AUTO 0.2 mg/dL (0.0-2.0); WBC, URINE AUTO 1 /HPF (0-3)
[2019-03-02 15:55] LABS: ALT/SGPT 15 U/L (12-78); BILIRUBIN,TOTAL 0.1 MG/DL (0.2-1.0); BLOOD UREA NITROGEN 7 MG/DL (7-18); CALCIUM LEVEL 9.3 MG/DL (8.5-10.1); CARBON DIOXIDE LEVEL 20 MEQ/L (21-32); CHLORIDE LEVEL 106 MEQ/L (98-107); CREATININE FOR GFR 0.79 MG/DL (0.55-1.30); GLOMERULAR FILTRATION RATE > 60.0 (>60); GLUCOSE, FASTING 101 MG/DL (70-100); HCG, SERUM QUANTITATIVE 21 MIU/ML; POTASSIUM SERUM 4.1 MEQ/L (3.5-5.1); SODIUM LEVEL 138 MEQ/L (136-145); TOTAL PROTEIN 7.9 GM/DL (6.4-8.2)
--- NOTE | 2019-03-02 16:56 | REP ---
PELVIC ULTRASOUND: Real-time sonographic evaluation of the pelvis performed utilizing transabdominal and endovaginal technique. The uterus measures 6.7 x 3.8 x 4.3 cm. The uterus is retroverted. No gestational sac is seen in the endometrial canal. Endometrial thickness is 6 mm. Ovaries are normal in size and echotexture, right ovary measuring 3.4 x 1.9 x 2.0 cm and left ovary 3.2 x 1.5 x 1.1 cm. There is no adnexal mass identified. Small amount of free fluid is seen near the uterine fundus. There is no ovarian torsion, RI right ovary 0.63 and left ovary 0.60. Differential diagnosis would include very early intrauterine , missed AB or ectopic . Suggest correlation with serial quantitative beta hCG values and followup ultrasound as necessary. Electronically Signed by Romain Leon MD 03/05/2019 07:19 P
[2019-03-02 17:57] VITALS: BP 114/60
== END 2019-03-02 17:59 | disposition home or self-care (01) ==
LOC: M ED 12:38
DX: O99.89 Other specified diseases and conditions complicating pregnancy, childbirth and the puerperium (principal); G44.209 Tension-type headache, unspecified, not intractable; F41.9 Anxiety disorder, unspecified; Z3A.00 Weeks of gestation of pregnancy not specified
CPT/HCPCS: 36415; 76801; 76817; 80053; 81001; 84702; 85027; 87086; 93976; 99284; Q0162

== ENCOUNTER 2019-03-05 13:54 | Emergency (ER) | payer OTHER ==
[~2019-03-05] VITALS: Ht 162.6 cm; Wt 70.6 kg
[~2019-03-05 13:54] MED LIST changes: -ACET-683 PO
[2019-03-05] MEDS ORDERED: ACET-683 PO (14:05)
[2019-03-05] MEDS ORDERED: METOCLOPRAMIDE INJ 10MG/2ML VIAL (J2765) IV ONE (16:30)
[2019-03-05] MEDS ORDERED: NS 1,000 ML IV ONE (16:30)
[2019-03-05 18:30] VITALS: BP 119/69
== END 2019-03-05 18:31 | disposition home or self-care (01) ==
LOC: M ED 13:54
DX: O99.89 Other specified diseases and conditions complicating pregnancy, childbirth and the puerperium (principal); R51 Headache; R11.2 Nausea with vomiting, unspecified; F41.9 Anxiety disorder, unspecified; Z82.0 Family history of epilepsy and other diseases of the nervous system; Z82.49 Family history of ischemic heart disease and other diseases of the circulatory system; Z3A.01 Less than 8 weeks gestation of pregnancy
CPT/HCPCS: 36415; 84702; 96374; 99284; J2765

== ENCOUNTER → 2019-03-05 | Outpatient (CLI) | payer OTHER ==
[~2019-03-05] MED LIST changes: +ACET-683 PO
== END ==
LOC: M LAB 10:14
PROVIDERS: ATTEND Physician Assistant Medical
DX: Z34.91 Encounter for supervision of normal pregnancy, unspecified, first trimester (principal); Z3A.01 Less than 8 weeks gestation of pregnancy

== ENCOUNTER → 2019-03-10 | Outpatient (CLI) | payer OTHER ==
[~2019-03-10] MED LIST changes: +ACET-683 PO
== END ==
LOC: M LAB 12:47
PROVIDERS: ATTEND Family Medicine
DX: J98.59 Other diseases of mediastinum, not elsewhere classified (principal)

== ENCOUNTER → 2019-03-13 | Outpatient (CLI) | payer OTHER | LOC: M LAB 08:08 | PROVIDERS: ATTEND Family Medicine | DX: Z3A.01 Less than 8 weeks gestation of pregnancy (principal); Z34.81 Encounter for supervision of other normal pregnancy, first trimester ==

== ENCOUNTER 2019-09-18 10:16 | Emergency (ER) | payer OTHER ==
[~2019-09-18] VITALS: Ht 162.6 cm; Wt 72.3 kg
[2019-09-18 11:43] LABS: HCG, SERUM QUALITATIVE POSITIVE (NEGATIVE)
--- NOTE | 2019-09-18 12:11 | REP ---
Emergency first trimester obstetric sonography: History: Vaginal bleeding. No available beta hCG level. Findings: Transabdominal and transvaginal scanning are performed. Uterine dimensions are normal at 6.3 x 4.5 x 4.1 cm. Endometrial echo is 1.1 cm thick. The uterus is retroverted. No gestational sac is seen within the uterine endometrium. There is complex free fluid adjacent to the left ovary and uterus. Left ovary measures 5.0 x 3.2 x 2.8 cm. There is a complex structure in the left adnexa between the uterus and the left ovary measuring 2.0 x 1.6 x 1.9 cm. There is echogenic structure surrounding central cystic or fluid component within this. Left ectopic cannot be excluded. The left ovary is otherwise unremarkable. There is ovarian Doppler flow on the left with resistive index 0.45. The right ovary is normal measuring 3.5 x 1.5 x 3.1 cm. Doppler flow is present in the right ovary as well, resistive index 0.49. Impression: No evidence of intrauterine gestation at this point. Complex free fluid in the cul-de-sac. There is a 2 cm complex structure between the uterus in the left ovary which includes a echogenic margin around a small cystic component. I cannot exclude ectopic . Normal right ovary. Electronically Signed by Jaya Tinsley MD 09/18/2019 03:16 P
[2019-09-18 12:13] LABS: HEMATOCRIT 38.8 % (36.0-47.0); HEMOGLOBIN 13.7 g/dl (12.0-15.5); MEAN CORPUSCULAR HEMOGLOBIN 29.7 pg (27.0-33.0); MEAN CORPUSCULAR HGB CONC 35.3 g/dl (32.0-36.5); MEAN CORPUSCULAR VOLUME 84.2 fl (80.0-96.0); PLATELET COUNT, AUTOMATED 328 10^3/uL (150-450); RED BLOOD COUNT 4.61 10^6/uL (4.00-5.40); WHITE BLOOD COUNT 10.5 10^3/uL (4.0-10.0)
[2019-09-18 13:44] LABS: CHLAMYDIA DNA AMPLIFICATION NEGATIVE (NEGATIVE); GC DNA AMPLIFICATION NEGATIVE (NEGATIVE)
[2019-09-18] MEDS ORDERED: MULTTAB20 PO (13:58)
[2019-09-18 14:07] VITALS: BP 123/68
--- NOTE | 2019-09-19 12:22 | ED PDOC ---
Post-Departure Follow-Up dr castro faxed formal report of 1st trimester us for fu Dasha Schultz MD Sep 19, 2019 12:22
== END 2019-09-18 14:15 | disposition home or self-care (01) ==
LOC: M ED 10:16
DX: O26.851 Spotting complicating pregnancy, first trimester (principal); O34.81 Maternal care for other abnormalities of pelvic organs, first trimester; N83.292 Other ovarian cyst, left side; O21.9 Vomiting of pregnancy, unspecified; Z3A.00 Weeks of gestation of pregnancy not specified; Z79.899 Other long term (current) drug therapy

== ENCOUNTER → 2019-09-20 | Outpatient (CLI) | payer OTHER ==
[~2019-09-20] MED LIST changes: +MULTTAB20 PO
== END ==
LOC: M LAB 10:44
PROVIDERS: ATTEND Internal Medicine
DX: Z34.81 Encounter for supervision of other normal pregnancy, first trimester (principal)

== ENCOUNTER → 2019-09-21 | Outpatient (REF) | payer OTHER | LOC: M SFHCWAGY 16:57 | PROVIDERS: ATTEND Specialist | DX: O00.90 Unspecified ectopic pregnancy without intrauterine pregnancy (principal) ==

== ENCOUNTER → 2019-09-22 | Outpatient (CLI) | payer OTHER | LOC: M LAB 10:30 | PROVIDERS: ATTEND Specialist | DX: O00.90 Unspecified ectopic pregnancy without intrauterine pregnancy (principal) ==

== ENCOUNTER → 2019-09-27 | Outpatient (CLI) | payer OTHER | LOC: M LAB 17:27 | PROVIDERS: ATTEND Specialist | DX: O00.90 Unspecified ectopic pregnancy without intrauterine pregnancy (principal) ==

== ENCOUNTER → 2019-12-14 | Outpatient (CLI) | payer OTHER ==
[2019-12-14 14:50] LABS: FOLLICLE STIMULATING HORMONE 6.5 mIU/mL; FREE T4 1.26 NG/DL (0.76-1.46); LUTEINIZING HORMONE 4.1 mIU/mL; THYROID STIMULATING HORMONE 1.03 uIU/ML (0.358-3.740)
[2019-12-16 00:07] LABS: CARDIOLIPIN IGA ANTIBODY <9 APL U/mL (0-11); CARDIOLIPIN IGG ANTIBODY <9 GPL U/mL (0-14); CARDIOLIPIN IGM ANTIBODY 14 MPL U/mL (0-12)
[2019-12-19 10:31] LABS: DRVV SCREEN 34.1 SEC
[2019-12-19 10:33] LABS: PTT LUPUS TYPE ANTICOAG SCREEN 0.8 (0-1.2)
== END ==
LOC: M LAB 13:08
PROVIDERS: ATTEND Specialist
DX: N96 Recurrent pregnancy loss (principal)

== ENCOUNTER → 2020-02-07 | Outpatient (CLI) | payer OTHER | LOC: M LAB 11:28 | PROVIDERS: ATTEND Specialist | DX: N92.6 Irregular menstruation, unspecified (principal) ==

== ENCOUNTER → 2020-02-09 | Outpatient (CLI) | payer OTHER | LOC: M LAB 11:13 | PROVIDERS: ATTEND Specialist | DX: N92.6 Irregular menstruation, unspecified (principal) ==

== ENCOUNTER 2020-07-06 19:52 | Emergency (ER) | payer OTHER ==
[~2020-07-06] VITALS: Ht 162.6 cm; Wt 77.0 kg
[2020-07-06 20:33] LABS: BASO % 0.4 % (0.0-1.0); EOS # 0.4 10^3/uL (0.0-0.5); EOS % 3.6 % (0.0-3.0); HEMATOCRIT 39.4 % (36.0-47.0); HEMOGLOBIN 13.4 g/dl (12.0-15.5); LYMPH % 39.7 % (24.0-44.0); MEAN CORPUSCULAR HEMOGLOBIN 29.1 pg (27.0-33.0); MEAN CORPUSCULAR VOLUME 85.5 fl (80.0-96.0); MONO # 1.2 10^3/uL (0.0-0.8); MONO % 11.4 % (0.0-5.0); NEUTROPHILS # 4.5 10^3/uL (1.5-8.5); NEUTROPHILS % 44.7 % (36.0-66.0); PLATELET COUNT, AUTOMATED 286 10^3/uL (150-450); RED BLOOD COUNT 4.61 10^6/uL (4.00-5.40); WHITE BLOOD COUNT 10.1 10^3/uL (4.0-10.0)
[2020-07-06 20:57] LABS: BLOOD UREA NITROGEN 9 MG/DL (7-18); CALCIUM LEVEL 8.6 MG/DL (8.5-10.1); CARBON DIOXIDE LEVEL 27 MEQ/L (21-32); CHLORIDE LEVEL 106 MEQ/L (98-107); CREATININE FOR GFR 0.83 MG/DL (0.55-1.30); GLOMERULAR FILTRATION RATE > 60.0 (>60); GLUCOSE, FASTING 89 MG/DL (70-100); HCG, SERUM QUANTITATIVE 140 MIU/ML; SODIUM LEVEL 138 MEQ/L (136-145)
--- NOTE | 2020-07-06 21:42 | REPVR ---
PROCEDURE INFORMATION: Exam: US First Trimester, Transabdominal and US , Transvaginal Exam date and time: 07/06/2020 8:55 PM Age: 25 years old Clinical indication: Lmp or gestational age (in weeks): 05/16/2020; Vaginal bleeding; ; Patient HX: No hcg available at time of exam. TECHNIQUE: Imaging protocol: Real-time transabdominal obstetrical ultrasound of the maternal pelvis and a first trimester , less than 14 weeks 0 days, with image documentation. Transvaginal imaging was used for better evaluation of the fetus, adnexa, and/or cervix. COMPARISON: No relevant prior studies available. FINDINGS: Last menstrual period: 05/16/2020 Gestation: There is a 0.16 cm sac-like structure in the endometrium, which may represent a gestational sac. No pole or yolk sac is visualized. Embryonic/ heart rate: No cardiac activity is visualized. Placenta: No placenta is visualized. Amniotic fluid: No amniotic fluid is visualized. BIOMETRY: Gestational age (AUA): 4 weeks 4 days Gestational age by LMP: 7 weeks 2 days Estimated due date (AUA): 03/11/2021 Estimated due date by LMP: 02/20/2021 Mean sac diameter: 0.16 cm MATERNAL: Uterus: The uterus is retroverted and measures 7.1 cm x 4 cm x 5.5 cm. No myometrial mass is noted. The endometrium measures 17 mm in thickness. Cervix: Unremarkable. Right adnexa: The right ovary measures 2.7 cm x 2.9 cm x 2.8 cm and there is a 1.2 cm x 0.8 cm x 0.9 cm thick walled hypoechoic cyst in the right ovary, which may represent a corpus luteal cyst. The color Doppler flow and spectral waveforms within the right ovary are within normal limits, without evidence for right ovarian torsion. Left adnexa: The left ovary is normal in appearance. No left ovarian cyst or left adnexal mass is noted. The left ovary measures 3.2 cm x 3.1 cm x 1.5 cm. The color Doppler flow and spectral waveforms within the left ovary are within normal limits, without evidence for left ovarian torsion. Intraperitoneal space: There is a trace amount of free fluid in the cul-de-sac. IMPRESSION: 0.16 cm sac-like structure in the endometrium, which may represent a gestational sac with a gestational age of 4 weeks 4 days and estimated due date on 03/11/2021. However, no pole is visualized, which may be due to the early gestational age versus a failed . Follow-up serial beta hCG levels and a repeat obstetrical ultrasound in approximately 14 days or as clinically indicated are suggested. Electronically signed by: Felipe Dickens On 07/06/2020 21:42:04 PM
[2020-07-06 21:55] VITALS: BP 110/73
== END 2020-07-06 22:28 | disposition home or self-care (01) ==
LOC: M ED 19:52
DX: O20.0 Threatened abortion (principal); O99.341 Other mental disorders complicating pregnancy, first trimester; F41.9 Anxiety disorder, unspecified; Z3A.01 Less than 8 weeks gestation of pregnancy

== ENCOUNTER → 2020-07-09 | Outpatient (CLI) | payer OTHER | LOC: M LAB 10:50 | PROVIDERS: ATTEND Physician Assistant | DX: Z32.00 Encounter for pregnancy test, result unknown (principal) ==

== ENCOUNTER 2020-07-12 03:03 | Emergency (ER) | payer OTHER ==
[~2020-07-12] VITALS: Ht 162.6 cm; Wt 76.3 kg
[2020-07-12 06:25] VITALS: BP 117/72
--- NOTE | 2020-07-12 06:36 | REPVR ---
PROCEDURE INFORMATION: Exam: US First Trimester, Transabdominal Exam date and time: 07/12/2020 5:40 AM Age: 25 years old Clinical indication: Lmp or gestational age (in weeks): 05/16/2020; Other: Vaginal bleeding and cramping; ; Additional info: Incomplete ab TECHNIQUE: Imaging protocol: Real-time transabdominal obstetrical ultrasound of the maternal pelvis and a first trimester , less than 14 weeks 0 days, with image documentation. COMPARISON: 1ST TRIMESTER US 07/06/2020 8:36 PM FINDINGS: Gestation: No endometrial intrauterine gestational sac or pole is visualized. Embryonic/ heart rate: Not visualized. Placenta: Not visualized. Amniotic fluid: Not present. BIOMETRY: Gestational age (AUA): Not visualized. MATERNAL: Uterus: The uterus measures 7.7 x 3.2 by 4.1 cm. The endometrium is slightly heterogeneous. Endometrial thickness 0.6 cm. Cervix: Unremarkable. Right adnexa: The right ovary is technically measured at 6.1 x 3.2 x 2.8 cm which most likely measures extra ovarian adjacent soft tissues and the right ovary is felt to reflect dimensions of 2.8 by 1.5 by 2.5 cm. No torsion. Left adnexa: The left ovary measures 2.0 x 1.6 x 1.6 cm. No torsion. Intraperitoneal space: No dominant free fluid in the cul-de-sac. IMPRESSION: 1. Nonvisualization of intrauterine with heterogeneity of the endometrium. 2. No evidence of ovarian torsion or adnexal or cul-de-sac fluid. 3. In the setting of positive test above findings could reflect completed or spontaneous in progress requires correlation to serial quantitative HCG levels which are not available. Other differential could include normal early intrauterine too small for visualization depending on menstrual dating and quantitative HCG levels. Additional less likely consideration could include ectopic . Electronically signed by: Kayla Ingram On 07/12/2020 06:36:20 AM
== END 2020-07-12 08:04 | disposition home or self-care (01) ==
LOC: M ED 03:03
DX: O02.1 Missed abortion (principal); Z79.899 Other long term (current) drug therapy

== ENCOUNTER → 2020-07-14 | Outpatient (CLI) | payer OTHER | LOC: M LAB 11:55 | PROVIDERS: ATTEND Emergency Medicine | DX: O20.0 Threatened abortion (principal); Z3A.00 Weeks of gestation of pregnancy not specified ==